=== PATIENT | male | born 1995 | race Caucasian/White ===

== ENCOUNTER 2017-07-21 11:14 | Emergency (ER) | payer OTHER ==
[2017-07-21 11:16] VITALS: BP 127/73; PULSE 73; RESP 16; TEMP 97.8; O2SAT 99
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
[2017-07-21] MEDS ORDERED: IBUP-232 PO (13:32)
[2017-07-21] MEDS ORDERED: ROBA750T PO (13:32)
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
== END 2017-07-21 16:03 | disposition home or self-care (01) ==
LOC: NEPK 11:14
DX: S42.91XA Fracture of right shoulder girdle, part unspecified, initial encounter for closed fracture (principal); S16.1XXA Strain of muscle, fascia and tendon at neck level, initial encounter; M25.551 Pain in right hip; V03.90XA Pedestrian on foot injured in collision with car, pick-up truck or van, unspecified whether traffic or nontraffic accident, initial encounter; Y93.01 Activity, walking, marching and hiking; Y92.219 Unspecified school as the place of occurrence of the external cause
CPT/HCPCS: 71020; 72125; 73030; 73502; 99284